=== PATIENT | female | born 1995 | race Two or more races ===

== ENCOUNTER → 2018-06-14 10:48 | Outpatient (CLI) | payer MEDICAID, SELFPAY ==
[2018-06-14 12:02] LABS: Glucose 1 Hour 140 mg/dL (74-106)
[2018-06-14 12:10] LABS: Basophils % 0.2 % (0.1-2.0); Eosinophils # 0.1 K/mm3 (0.0-0.4); Eosinophils % 1.1 % (0.1-12.0); Hematocrit 34.3 % (37.0-47.0); Lymphocytes # 1.9 K/mm3 (0.7-4.5); Lymphocytes % 22.5 K/mm3 (10-50); Mean Corpuscular HGB Conc 32.2 g/dL (31.8-35.4); Mean Corpuscular Hemoglobin 28.3 pg (27.0-31.2); Mean Corpuscular Volume 87.6 fl (81-99); Mean Platelet Volume 7.7 fl (7.4-10.4); Monocytes # 0.3 K/mm3 (0.1-1.0); Monocytes % 3.9 % (1.7-9.3); Neutrophils % 72.3 % (37.0-80.0); Platelet Count 231 K/mm3 (142-424); Red Blood Count 3.91 M/mm3 (4.20-5.40); Red Cell Distribution Width 12.8 % (11.5-17.5); White Blood Count 8.3 K/mm3 (4.8-10.8)
[2018-06-15 08:29] LABS: Rapid Plasma Reagin Ab Titer Non Reactive (NonRea<1:1)
[2018-06-15 19:06] LABS: HIV Screen 4th Generation wRfx Non Reactive (Non Reactive); Hepatitis B Surface Antigen Negative (Negative); Hepatitis C Antibody 0.1 s/co ratio (0.0-0.9); Rubella Antibodies, IgG 7.45 index (Immune >0.99)
[2018-06-19 08:28] LABS: Neisseria gonorrhoeae, NAA Negative (Negative)
== END ==
PROVIDERS: PCP Obstetrics & Gynecology; Visit Provider Obstetrics & Gynecology
DX: Z34.90 Encounter for supervision of normal pregnancy, unspecified, unspecified trimester (principal)
CPT/HCPCS: 36415; 82951; 85025; 86592; 86703; 86762; 86850; 87340; 87380; 87491; 87591; G0432

== ENCOUNTER → 2018-06-19 12:59 | Outpatient (CLI) | payer MEDICAID, SELFPAY ==
--- NOTE | 2018-06-19 13:02 | US_ITS ---
US OB /maternal detail: INDICATION: ITS.REASON: US OB Complete -Anatomy Scan, patient is 20wk+ ORDERING PHYSICIAN: Dorita Knight MD PATIENT AGE: 22 years TECHNIQUE: ultrasound transabdominal scanning. COMPARISON: No previous relevant studies. FINDINGS: Single viable intrauterine gestation. CEPHALIC position. Placenta: Anterior placenta grade 1. There is average amount fluid. The cervix appears satisfactory. Closed and measuring 3 cm in length. Complete survey performed and was unremarkable on the submitted images as in PACS. No discrete anomalies identified on survey imaging by technologist. Active fetus. Three-vessel cord with satisfactory umbilical cord insertion. 4- chamber heart noted. Survey of brain & ventricles unremarkable. Face and neck survey unremarkable. Diaphragm and chest views unremarkable. Abdomen: Both kidneys noted and unremarkable. Stomach noted and satisfactory. Spine: Survey of the spine satisfactory with no anomalies identified nor imaged. Both arms and legs noted. Amniotic Fluid: Adequate. Maternal adnexa: No significant findings. Measurements: Average ultrasound age 31w5d. Gestational Age 34w0d. Estimated due date by ultrasound age 1108/16/2019. Estimated weight 1760 grams. This is 2nd percentile based on evaluation due date of 07/31/2018 BPD = 32w3d OFD = 31w3d HC = 31w4d AC = 31w3d FL = 31w3d Growth Percentile= 2 percentile Heart Rate = 126 Cerebellum = Humerus = 31w5d HC/AC is 1.05 (0.96-1.11). CI is 80% (70-86%). FL/BPD is 75% (71-86%). FL/AC is 22% (20-24%). Evaluation of the umbilical artery shows an SD ratio of 2.6 and a resistive index of 0.62. SVEN is normal at 13 cm IMPRESSION: 1. Live intrauterine gestation with an average ultrasound age of 31 weeks and 5 days with an estimated weight of 1760 g which is 2nd percentile based on established due date of 07/31/2018. There are no previous exams available at this institution for comparison. No obvious anomalies. All parameters correlate. The estimated due date by ultrasound is 08/16/2018. Please correlate with early obstetric ultrasound for appropriate dates if available. No obvious anomalies. 2. Average amniotic fluid volume and unremarkable Doppler evaluation of the umbilical artery. 3. Posterior grade 1 placenta
== END ==
PROVIDERS: Visit Provider Obstetrics & Gynecology
DX: Z36.0 Encounter for antenatal screening for chromosomal anomalies (principal)
CPT/HCPCS: 76811

== ENCOUNTER → 2018-06-28 17:31 | Outpatient (REF) | payer MEDICAID, SELFPAY | LOC: LAB 17:31 | PROVIDERS: Visit Provider Nurse Practitioner Obstetrics & Gynecology | DX: Z34.90 Encounter for supervision of normal pregnancy, unspecified, unspecified trimester (principal) | CPT/HCPCS: 86403 ==

== ENCOUNTER 2018-07-30 01:01 | Inpatient (IN) ==
[2018-07-30 05:42] LABS: Basophils % 0.2 % (0.1-2.0); Eosinophils # 0.1 K/mm3 (0.0-0.4); Eosinophils % 1.6 % (0.1-12.0); Hematocrit 32.6 % (37.0-47.0); Hemoglobin 11.6 g/dL (12.2-16.2); Lymphocytes # 2.5 K/mm3 (0.7-4.5); Lymphocytes % 29.5 K/mm3 (10-50); Mean Corpuscular HGB Conc 35.5 g/dL (31.8-35.4); Mean Corpuscular Hemoglobin 29.9 pg (27.0-31.2); Mean Corpuscular Volume 84.1 fl (81-99); Mean Platelet Volume 7.8 fl (7.4-10.4); Monocytes # 0.4 K/mm3 (0.1-1.0); Monocytes % 4.8 % (1.7-9.3); Neutrophils # 5.4 K/mm3 (1.8-7.8); Neutrophils % 63.8 % (37.0-80.0); Platelet Count 197 K/mm3 (142-424); Red Blood Count 3.87 M/mm3 (4.20-5.40); White Blood Count 8.5 K/mm3 (4.8-10.8)
[2018-07-30 07:00] LABS: Microscopic, Urine URINE MICROSCOPIC (MICROSCOPIC)
[2018-07-30 07:06] LABS: Appearance,Urine CLEAR (Clear); Bilirubin,Urine Negative (Negative); Blood, Urine Negative (Negative); Color,Urine YELLOW (Yellow); Glucose,Urine (UA) Negative (Negative); Ketones,Urine 1+ (Negative); Leukocyte Esterase,Urine Negative (Negative); PH,Urine 7.5 (5.0-8.5); Protein,Urine Negative (Negative); Specific Gravity, Urine 1.015 (1.005-1.030); Urobilinogen,Urine 0.2 EU/dl (0.2)
[2018-07-30 07:15] LABS: Amphetamine/Metha Screen,Urine Negative ng/mL (<1000); Barbiturates Screen,Urine Negative ng/mL (<200); Benzodiazepines Screen,Urine Negative ng/mL (<200); Cannabinoid Screen,Urine Negative ng/mL (<50); Cocaine Screen,Urine Negative ng/mL (<300); Methadone Screen,Urine Negative ng/mL (<300); Opiate Screen,Urine Negative ng/mL (<300); Phencyclidine Screen,Urine Negative ng/mL (<25)
[2018-07-30 07:32] LABS: Bacteria,Urine Trace /lpf; WBC,Urine Occasional #/hpf (0-3)
--- NOTE | 2018-07-30 18:46 | History & Physical Report ---
OB - H&P: HPI Antepartum - History of Present Illness Chief complaint: scheduled induction of labor History of present illness: 22 yo G1 @ 40+ weeks by uncertain dating scheduled for IOL due to polyhydramnios. Limited care with late presentation to our practice at approx 33 wks after [place] this [place] from [facility]. During ultrasound for anatomical survey, polyhydramnios was noted and scheduled for induction. [facility] History Medical History: Denies:: Anxiety, Depression, Diabetes Mellitus Type 1, Hypertension, Migraine, MRSA, Seizures Other Surgeries: No: Amputation: No Fractures: No - *Social History Smoking Status: Never smoker Alcohol Intake: never Substance Use Type: denies use - Psychiatric History Pschychiatric History:: Denies:: Anxiety, Depression *Family Hx:: No significant family history : 1 Para: 0 Review of Systems - Review of Systems Review of systems:: pertinent systems reviewed and negative unless documented below Meds Home Medications Medication Instructions Recorded Confirmed Type Vit Calc,Iron,Folic [Kpn] 1 each PO DAILY 07/30/18 07/30/18 History Allergies Allergy/AdvReac Type Severity Reaction Status Date / Time No Known Allergies Allergy Verified 07/26/18 08:24 OB - H&P: Exam - Physical Exam Vital signs: Temp Pulse Resp BP Pulse Ox 98.5 F 83 18 119/66 98 07/30/18 05:52 07/30/18 05:52 07/30/18 05:52 07/30/18 05:52 07/30/18 05:52 - Constitutional no acute distress - Routine Respiratory Exam Present: CTA bilaterally. Absent: respiratory distress - Routine Cardiovascular Exam Present: RRR - Routine Abdominal Exam Present: soft. Absent: tenderness, distended, guarding - Routine Extremities Exam Absent: edema - Routine Skin Exam Absent: rash - Routine Neurological Exam Present: alert, oriented X3 - Routine Psychiatric Exam Absent: depressed, anxious OB - Results - Labs Labs: Short CBC 07/30/18 Range/Units 05:35 WBC 8.5 (4.8-10.8) K/mm3 Hgb 11.6 L (12.2-16.2) g/dL Hct 32.6 L (37.0-47.0) % Plt Count 197 (142-424) K/mm3 Urine 07/30/18 Range/Units 05:40 Urine Color Yellow (Yellow) Urine Appearance Clear (Clear) Urine pH 7.5 (5.0-8.5) Ur Specific [place] 1.015 (1.005-1.030) Urine Protein Negative (Negative) Urine Glucose (UA) Negative (Negative) OB - A/P Antepartum (1) Polyhydramnios affecting Current visit: No Status: Acute (2) Uncertain dates, antepartum Current visit: No Status: Acute (3) Language barrier affecting health care Problem details: Maltese speaking Current visit: No Status: Acute (4) Anemia affecting in third trimester Problem details: Hgb 11.0 Current visit: No Status: Acute - Additional Plan Additional Information:: IOL Pitocin augmentation GBS negative Senior It Auditor assistance Continuous monitoring; status reassuring
--- NOTE | 2018-07-30 18:55 | Procedure Note ---
- Delivery Note Delivery Date:: 07/30/18 Delivery Time:: 16:00 Anesthesia Type: None Was labor medically induced?: Yes Induction method: per pitocin protocol Infant delivered prior to 39 weeks?: No Justification for early elective delivery:: Polydraminos Gender: Male at 1 minute: 6 at 5 minutes: 8 Delivery Procedure:: Spontaneous vaginal delivery of vigorous liveborn male over intact perineum. Apgars 6 & 8 Delivery uncomplicated, with no nuchal cord or shoulder dystocia noted No other complications Infant placed immediately on maternal abdomen for nursing assessment & LUISA immediately after umbilical cord clamped/cut Placenta spontaneously expressed and examined; noted to be complete/intact Vulva, vagina, and cervix inspected; left periurethral laceration noted Repair not needed EBL: 400cc All sponge/needle/instrument counts correct at conclusion of procedure Disposition: Mom/baby stable to recovery in LDRP Laceration:: labial Placental Delivery Description: Spontaneous
[2018-07-31 07:30] LABS: Hematocrit 30.5 % (37.0-47.0); Hemoglobin 10.3 g/dL (12.2-16.2)
[2018-08-01 08:39] VITALS: BP 107/60
--- NOTE | 2018-08-01 08:39 | Progress Note ---
Internal Medicine - PN: Subj *Date: 07/31/18 *Time: 09:30 Interval history: PPD#1 no complaints tolerating regular diet, ambulating and voiding lochia small Exam Vital signs and Labs for Last 24 Hours: Temp Pulse Resp BP Pulse Ox 99.1 F 70 18 125/70 98 07/30/18 20:00 07/30/18 20:00 07/30/18 20:00 07/30/18 20:00 07/30/18 20:00 I & O for Last 24 hours: Intake & Output 07/29/18 07/30/18 07/31/18 08/01/18 11:59 11:59 11:59 11:59 Weight 165 lb 2 oz - Constitutional no acute distress - *Routine Respiratory Exam Absent: respiratory distress - *Routine Cardiovascular Exam Present: RRR - *Routine Abdominal Exam Present: soft. Absent: tenderness, distended - *Routine Extremities Exam Absent: edema - *Routine Neurological Exam Present: alert, oriented X3 - Routine Psychiatric Exam Absent: depressed, anxious Assessment and Plan (1) Polyhydramnios affecting Current visit: No Status: Acute Category: Medical Code(s): O40.9XX0 - Polyhydramnios, unspecified trimester, not applicable or unspecified (2) Uncertain dates, antepartum Current visit: No Status: Acute Category: Medical Code(s): Z34.90 - Encounter for supervision of normal , unspecified, unspecified trimester (3) Language barrier affecting health care Problem details: Turkmen speaking Current visit: No Status: Acute Category: Social Hx Code(s): Z78.9 - Other specified health status (4) Anemia affecting in third trimester Problem details: Hgb 11.0 Current visit: No Status: Acute Category: Medical Code(s): O99.013 - Anemia complicating , third trimester - Assessment and plan all Dx Assessment and Plan for all problems:: PPD#1 Routine care discharge home tomorrow
--- NOTE | 2018-08-01 15:47 | Discharge Summary ---
General - General Admission date:: 07/30/18 Discharge date: 08/01/18 HPI HPI: PPD #2 no new complaints ready for discharge infant not being discharged due to need for bili lights Hospital Course Hospital Course: Induction of labor with pitocin augmentation normal vaginal delivery routine care discharge on PPD #2 Rhogam Administration: Not Indicated Objective Vital signs: Temp Pulse Resp BP Pulse Ox 98.2 F 71 16 107/60 L 98 08/01/18 08:00 08/01/18 08:00 08/01/18 08:00 08/01/18 08:00 08/01/18 08:00 no acute distress - *Routine Respiratory Exam Absent: decreased breath sounds - *Routine Abdominal Exam Present: soft. Absent: tenderness, distended - *Routine Skin Exam Present: dry, warm - *Routine Neurological Exam Present: alert, oriented X3 DS: Diagnosis - Discharge Diagnosis (1) Polyhydramnios affecting Status: Acute (2) Uncertain dates, antepartum Status: Acute (3) Language barrier affecting health care Status: Acute Problem details: Citizen Of [place] speaking (4) Anemia affecting in third trimester Status: Acute Problem details: Hgb 11.0 Discharge Plan - Patient Discharge Instructions ACTIVITY: Continue current activity DIET: regular diet Patient Instructions: Depression, Hemorrhage, Post Discharge Instructions - Follow up Plan Follow up with: Dorita Knight MD [Staff Physician] - Disposition: Home, Self-Long Term Medications: Home Medications Medication Instructions Recorded Confirmed Type Vit Calc,Iron,Folic [Kpn] 1 each PO DAILY 07/30/18 07/30/18 History Prescriptions/Medication Reconciliation: New Ibuprofen [Motrin 400mg tablet] 400 mg PO Q4HP PRN #30 tablet PRN Reason: Mild To Moderate Pain Continue Vit Calc,Iron,Folic [Kpn] 1 each PO DAILY
== END 2018-08-01 16:50 | disposition home or self-care (01) ==
LOC: OB 04:56
PROVIDERS: ADMIT Obstetrics & Gynecology; ATTEND Obstetrics & Gynecology